=== PATIENT | female | born 1945 | race Caucasian/White ===

== ENCOUNTER → 2016-06-04 | Outpatient (CLI) | payer OTHER ==
[~2016-06-04] VITALS: Ht 162.6 cm; Wt 67.1 kg
[~2016-06-04] MED LIST: ESTRACE0.5 MG PO; ESTRACE1 MG PO; IBUPROFEN 200200 M1 PO; NORVASC5 M1 PO; PROMETRIUM100 MG PO
--- NOTE | ~2016-06-04 | HPC ---
[facility] [address] [place] [address] PAIN MANAGEMENT CONSULTATION Name: BERNICE HOLLIDAY Room #: REG [facility]..#: [id number] Admission: 06/04/16 Attend Phys: Abdiaziz Flaherty DO Discharge: Date of : 45 Report #: [id number] THIS REPORT FOR: //name// CC: [facility] physician/PCP Abdiaziz King MD DATE OF SERVICE: 06/04/2016 DATE OF SERVICE: 06/04/2016 CHIEF COMPLAINT: Low back pain, right lower extremity pain and paresthesias. HISTORY OF PRESENT ILLNESS: As you know, the patient is a 71-year-old female, who returns today in followup visit where ____ recurrent low back pain, right lower extremity pain and paresthesias. She now places pain score at 4/10. States the pain is exacerbated with standing for any prolonged period of time, sitting and repositioning, appears to improve pain. She was last seen in our clinic 05/10/2015 where she underwent an epidural injection under fluoroscopic guidance, which reportedly provided 90% improvement in overall pain for nearly 1 year. She has had a slow and progressive return of symptoms without inciting injury or trauma. The distribution of symptoms is unchanged. Her pain intensity 4/10. She returns today to undergo epidural injection under fluoroscopic guidance. ALLERGIES: No known drug allergies. CURRENT MEDICATIONS: Amlodipine 5 mg per day, ibuprofen 200 mg twice a day, estradiol 1 mg per day, progesterone micronized 100 mg once a day. SOCIAL HISTORY: The patient denies tobacco, IV or illicit drug use. Admits to one alcoholic beverage per day. She is unaccompanied today. IMAGING: No new imaging available. PHYSICAL EXAMINATION: VITAL SIGNS: Blood pressure 154/91, pulse 95, respiratory rate 14, unlabored, patient is 100% on room air. Height 5 feet 4 inches tall, weight 148 pounds, BMI calculated 25.4. GENERAL: Well-developed, well-nourished, well-hydrated 71-year-old female appearing stated age, placing current pain score 4/10. HEENT: Normocephalic, atraumatic. Pupils equal, round, reactive to light. Extraocular muscles are intact. Sclerae nonicteric without injection. NEUROLOGIC: Cranial nerves 2 through 12 grossly intact. Speech is fluent. EXTREMITIES: Show no clubbing, no cyanosis, no edema. MUSCULOSKELETAL: Seated straight leg raising is negative. Supine straight leg [facility] [address] [place] [address] PAIN MANAGEMENT CONSULTATION Name: BERNICE HOLLIDAY Room #: REG [facility]#: [id number] Admission: 06/04/16 Attend Phys: Abdiaziz Flaherty DO Discharge: Date of : 45 Report #: [id number] raising positive right. Barbi test negative. Gait is antalgic favoring right lower extremity over left. Muscle bulk and tone equal and symmetrical in lower extremities, intact to light touch from L1 through S2 dermatomes. ASSESSMENT: 1. Symptomatic lumbar radiculopathy. 2. Displacement of lumbar intervertebral disk with radiculopathy. 3. Lumbosacral spondylosis with radiculopathy. 4. Lumbar degeneration. PLAN: 1. The patient has returned today in followup visit indicating 90% improvement in overall pain with the epidural injection provided nearly 1 year ago. The patient and I did discuss the possibility of repeating the epidural injection today. The patient has had a slow and progressive return of symptoms, same distribution and approximately same intensity. The patient and I did discuss the epidural injection itself and other treatment options including physical therapy, stretching exercises with core strengthening. We discussed medication management with neuropathic pain medications. The epidural patient requested today and surgical options. After reviewing risks and benefits of all proposed treatment options and understanding each of the treatment possibilities, the patient chose to undergo epidural injection under fluoroscopic guidance. The patient was advised the risks and benefits of a lumbar epidural injection. These risks include but are not necessarily limited to bleeding, bruising, infection, worsening pain, no relief of pain, also risk of temporary or permanent muscle weakness, temporary or permanent nerve damage, possible paralysis and . The patient states understood and wished to proceed. 2. No medication changes were made at today's visit, the patient to continue current medical therapy as previously prescribed. 3. The patient to return to our clinic on an as needed basis for possible repeat epidural injection. PROCEDURE NOTE DESCRIPTION OF PROCEDURE: Lumbar epidural steroid injection under fluoroscopic guidance. This is the first procedure of the second series that the patient is undergoing. After obtaining written consent, the patient was taken back to the fluoroscopy suite, placed in a prone position with pillow under the abdomen to decrease lumbar lordosis. The skin overlying the lumbosacral area was then prepped and draped in aseptic fashion. The L4-5 vertebral interspace was then identified by AP fluoroscopy. The skin and subcutaneous tissue overlying the target site of injection was anesthetized with 3 mL 1% lidocaine. [address] [address] PAIN MANAGEMENT CONSULTATION Name: BERNICE HOLLIDAY Room #: REG [facility]#: [id number] Admission: 06/04/16 Attend Phys: Abdiaziz Flaherty DO Discharge: Date of : 45 Report #: [id number] A 20-gauge 3-1/2 Tuohy needle was then advanced under fluoroscopic guidance towards the epidural space using a right paramedian approach. The epidural space was identified using loss of resistance to air technique. After negative aspiration for heme or cerebrospinal fluid, a total of 1 mL of Omnipaque was injected. A lumbar epidurogram was confirmed using both AP and lateral fluoroscopy. After negative aspiration for heme or cerebrospinal fluid, 5 mL of solution containing 2 mL 40 mg per mL, 80 mg total triamcinolone, 3 mL of lidocaine 1% was injected in increments. Contrast spread was noted posterior epidural space. The needle was then retracted approximately half way and needle tract flushed with 1 mL of 1% lidocaine. Needle was then removed. There were no apparent sensory or motor deficits in the lower extremity following the procedure. A sterile bandage was placed over the injection site. The heart rate, pulse, oximetry and blood pressure were continuously monitored after the procedure. There were no apparent complications. The patient tolerated the procedure well and was carefully escorted to the recovery room in stable condition. There were no apparent complications. After meeting discharge criteria, the patient was then discharged home. By: [id number] Abdiaziz Flaherty DO /nt
[2016-06-04 08:05] VITALS: BP 154/91
== END | disposition home or self-care (01) ==
LOC: PAIN 07:01
DX: M51.16 Intervertebral disc disorders with radiculopathy, lumbar region (principal); M47.27 Other spondylosis with radiculopathy, lumbosacral region

== ENCOUNTER → 2017-01-09 | Outpatient (CLI) | payer OTHER | LOC: RAD 02:09 | DX: Z12.31 Encounter for screening mammogram for malignant neoplasm of breast (principal) ==

== ENCOUNTER → 2018-01-16 | Outpatient (CLI) | payer OTHER | LOC: BC 09:48 | DX: Z12.31 Encounter for screening mammogram for malignant neoplasm of breast (principal) ==

== ENCOUNTER → 2018-09-16 | Outpatient (CLI) | payer OTHER ==
[~2018-09-16] VITALS: Ht 162.6 cm; Wt 65.9 kg
[~2018-09-16] MED LIST changes: +EFFEXOR XR75 MG PO; +FLONASE 0.05%50 MCG NASAL; +TERBINAFINE HC250 MG PO
[2018-09-16 09:46] VITALS: BP 112/71
--- NOTE | 2018-09-16 09:59 | NUR ---
Pain Clinic Assessment: 1. History of Osteoarthritis: Not Applicable History of Rheumatoid Arthritis: Not Applicable 2. Height: 5 ft. 4 in. 162.6 cm. Weight: 145.2 lb. oz. 65.862 kg. Patient's BMI: 24.9 3. Vital Signs: BP: 112/71 Pulse: 99 Resp: 14 Temp: 02 Sat: 98 ECG Mon: 4. Pain Intensity: 4-5 5. Fall Risk: Dizziness: N Needs help standing or walking: N Fallen in the last 3 months: N Fall risk comments: 6. Patient on Blood Thinner: None 7. History of Hypertension: Y 8. Opioid Therapy greater than 6 weeks: Opiate Contract Signed: 9. Risk Assessment Tool Provided: low-0 10. Functional Assessment Tool: 70 11. Recreational Drug Use: Never Drug Type: Tobacco Use: Never Smoker Tobacco Type: Amount or Packs/day: How Many Years: Alcohol Use: Yes Frequency: Weekly Quant: 1
== END | disposition home or self-care (01) ==
LOC: PAIN 06:48
DX: M54.16 Radiculopathy, lumbar region (principal); G89.29 Other chronic pain; Z79.899 Other long term (current) drug therapy

== ENCOUNTER → 2019-02-03 | Outpatient (CLI) | payer OTHER | LOC: RAD 09:14 | DX: Z12.31 Encounter for screening mammogram for malignant neoplasm of breast (principal) ==

== ENCOUNTER → 2019-08-30 | Outpatient (CLI) | payer OTHER | END | disposition home or self-care (01) | LOC: GI 07:32 | DX: Z12.11 Encounter for screening for malignant neoplasm of colon (principal); Z53.9 Procedure and treatment not carried out, unspecified reason; Z11.59 Encounter for screening for other viral diseases; I10 Essential (primary) hypertension; F32.9 Major depressive disorder, single episode, unspecified; Z98.890 Other specified postprocedural states; Z79.899 Other long term (current) drug therapy ==

== ENCOUNTER → 2020-04-18 | Outpatient (CLI) | payer OTHER ==
[~2020-04-18] MED LIST changes: +MULTIVITAMINS1 EAC7 PO
== END ==
LOC: BC 03-02 11:44
PROVIDERS: ATTEND Internal Medicine
DX: Z12.31 Encounter for screening mammogram for malignant neoplasm of breast (principal)